=== PATIENT | male | born 1980 | race Caucasian/White ===

== ENCOUNTER 2017-03-29 10:34 | Inpatient (IN) | payer BC, OTHER ==
[~2017-03-29] VITALS: Ht 198.1 cm; Wt 111.1 kg
[2017-03-30] VITALS (7 sets, daily range): BP systolic 99–131; BP diastolic 51–85
[2017-03-30] MEDS ORDERED: LOPERAMIDE HCL 2 MG CAPSULE PO PRN ×2 (00:30)
[2017-03-30] MEDS ORDERED: ONDANSETRON 4 MG/2 ML VIAL IM PRN (00:30)
[2017-03-30] MEDS ORDERED: DICYCLOMINE HCL 20 MG TABLET PO PRN (00:30)
[2017-03-30] MEDS ORDERED: MIRALAX 17 GM POWD.PACK PO PRN (00:30)
[2017-03-30] MEDS ORDERED: diphenhydrAMINE 50 MG CAPSULE PO PRN (00:30)
[2017-03-30] MEDS ORDERED: MAGNESIUM HYDROXIDE 30 ML LIQUID UDC PO PRN (00:30)
[2017-03-30] MEDS ORDERED: BUPRENORPHINE HCL 2 MG TAB.SUBL SL PRN (00:30)
[2017-03-30] MEDS ORDERED: HYDROXYZINE PAMOATE 25 MG CAPSULE PO PRN (00:30)
[2017-03-30] MEDS ORDERED: ONDANSETRON ODT 4 MG TAB.RAPDIS SL PRN (00:30)
[2017-03-30] MEDS ORDERED: MAG HYDROX/AL HYDROX/SIMETH 30 ML LIQUID UDC PO PRN (00:30)
[2017-03-30 01:34] LABS: *AMPHETAMINE, URINE POSITIVE (NEGATIVE); *BARBITURATE, URINE NEGATIVE (NEGATIVE); *CANNABINOID, URINE NEGATIVE (NEGATIVE); *COCCAINE, URINE NEGATIVE (NEGATIVE); *OPIATE, URINE POSITIVE (NEGATIVE); *PHENCYCLIDINE SCREEN,URINE NEGATIVE (NEGATIVE)
[2017-03-30] MEDS: METHOCARBAMOL 750 MG TABLET PO PRN ×2 (01:53→15:37)
[2017-03-30 01:55] LABS: BASOPHILS # (AUTO) 0.1 K/uL (0.0-8.0); EOSINOPHILS # (AUTO) 0.6 K/uL (0.0-0.7); EOSINOPHILS % (AUTO) 10.9 % (0.0-7.0); HEMATOCRIT 41.1 % (36.7-47.1); HEMOGLOBIN 14.7 g/dL (12.5-16.3); LYMPHOCYTES # (AUTO) 2.6 K/uL (20.0-40.0); LYMPHOCYTES % (AUTO) 45.7 % (20.5-51.5); MEAN CORPUSCULAR HGB CONC 36 g/dL (32.5-36.3); MEAN CORPUSCULAR VOLUME 86.5 fL (73.0-96.2); MONOCYTES # (AUTO) 0.5 K/uL (2.0-10.0); MONOCYTES % (AUTO) 8.9 % (0.0-11.0); NEUTROPHILS # (AUTO) 1.9 K/uL (1.8-8.9); NEUTROPHILS % (AUTO) 33.5 % (38.5-71.5); PLATELET COUNT (AUTO) 247 K/uL (152-348); RED BLOOD CELL COUNT(AUTO) 4.75 MIL/uL (4.06-5.63); WHITE BLOOD COUNT (AUTO) 5.6 K/uL (3.6-10.2)
[2017-03-30] MEDS ORDERED: HYDROXYZINE PAMOATE 25 MG CAPSULE ONE (02:07)
[2017-03-30] MEDS ORDERED: METHOCARBAMOL 750 MG TABLET ONE (02:08)
[2017-03-30] MEDS ORDERED: diphenhydrAMINE 50 MG CAPSULE ONE (02:08)
[2017-03-30 02:18] LABS: ALANINE AMINOTRANSFERASE 30 U/L (16-63); ALKALINE PHOSPHATASE 55 U/L (50-136); ASPARTATE AMINOTRANSFERASE 15 U/L (15-37); BILIRUBIN,TOTAL 0.6 mg/dL (0.2-1.0); CARBON DIOXIDE 33 mmol/L (21-32); CHLORIDE 102 mmol/L (98-107); CREATININE 1.4 mg/dL (0.6-1.3); GLUCOSE 113 mg/dL (74-106); MAGNESIUM 2.2 mg/dL (1.8-2.4); POTASSIUM 4.4 mmol/L (3.5-5.1); TOTAL PROTEIN, SERUM 7.2 g/dL (6.4-8.2); UREA NITROGEN, BLOOD 22 mg/dL (7-18)
[2017-03-30 02:19] LABS: AMYLASE 55 U/L (25-115); LIPASE 100 U/L (73-393)
[2017-03-30 02:32] LABS: THYROID STIMULATING HORMONE 3.362 mIU/mL (0.358-3.740)
[2017-03-30 02:43] LABS: ETHANOL < 3 MG/DL (0-0)
[2017-03-30] MEDS: MULTIVITAMINS,THERAPEUTIC TABLET PO SCH (09:15)
[2017-03-30] MEDS ORDERED: INFLUENZA VACCINE 2017-2018 0.5 ML DISP.SYRIN IM ONE (09:30)
[2017-03-30] MEDS ORDERED: LORAZEPAM 1 MG TABLET PO PRN (11:15)
[2017-03-30] MEDS: BUPRENORPHINE HCL 2 MG TAB.SUBL SL SCH ×3 (12:42→20:09)
[2017-03-30] MEDS: IBUPROFEN 600 MG TABLET PO PRN ×2 (15:37→23:37)
[2017-03-30] MEDS: ACETAMINOPHEN 325 MG TABLET PO PRN (20:09)
[2017-03-30] MEDS: HYDROXYZINE PAMOATE 25 MG CAPSULE PO PRN (20:09)
[2017-03-30] MEDS: GABAPENTIN 300 MG CAPSULE PO SCH (20:09)
[2017-03-30] MEDS: CLONIDINE HCL 0.1 MG TABLET PO PRN (23:38)
[2017-03-31 04:00] VITALS: BP 105/64
[2017-03-31 08:23] VITALS: BP 112/62
[2017-03-31] MEDS ORDERED: TUBERCULIN,PURIF.PROT.DERIV. 5 TU/0.1 ML TEST ID ONE (09:00)
[2017-03-31] MEDS: GABAPENTIN 300 MG CAPSULE PO SCH ×3 (09:23→21:05)
[2017-03-31] MEDS: MULTIVITAMINS,THERAPEUTIC TABLET PO SCH (09:24)
[2017-03-31] MEDS: BUPRENORPHINE HCL 2 MG TAB.SUBL SL SCH ×3 (09:24→21:06)
[2017-03-31] MEDS: CLONIDINE HCL 0.1 MG TABLET PO PRN (09:31)
[2017-03-31] MEDS: METHOCARBAMOL 750 MG TABLET PO PRN (09:31)
[2017-03-31] MEDS: HYDROXYZINE PAMOATE 25 MG CAPSULE PO PRN (09:32)
[2017-03-31] MEDS: ACETAMINOPHEN 325 MG TABLET PO PRN (09:32)
[2017-03-31] MEDS ORDERED: KETOROLAC TROMETHAMINE 30 MG INJ IM PRN (10:45)
[2017-03-31] MEDS ORDERED: ASPIRIN/ACETAMINOPHEN/CAFFEINE TABLET PO PRN (10:45)
[2017-03-31 12:55] VITALS: BP 118/72
[2017-03-31 14:08] LABS: HEPATITIS B SURFACE AG Negative (Negative)
[2017-03-31] MEDS: BACLOFEN 10 MG TABLET PO SCH ×2 (14:12→21:06)
[2017-03-31 16:55] VITALS: BP 106/64
[2017-03-31 20:00] VITALS: BP 112/75
[2017-03-31] MEDS: CLONIDINE HCL 0.1 MG TABLET PO SCH (21:06)
[2017-04-01] VITALS: BP 97/65
[2017-04-01 08:00] VITALS: BP 105/61
[2017-04-01] MEDS: METHOCARBAMOL 750 MG TABLET PO PRN (08:11)
[2017-04-01] MEDS: BACLOFEN 10 MG TABLET PO SCH (08:11)
[2017-04-01] MEDS: MULTIVITAMINS,THERAPEUTIC TABLET PO SCH (08:11)
[2017-04-01] MEDS: GABAPENTIN 300 MG CAPSULE PO SCH ×3 (08:11→20:21)
[2017-04-01 08:54] LABS: MAGNESIUM 1.9 mg/dL (1.8-2.4); POTASSIUM 4.2 mmol/L (3.5-5.1)
[2017-04-01] MEDS ORDERED: BUPRENORPHINE HCL 2 MG TAB.SUBL SL SCH (09:00)
[2017-04-01] MEDS: CLONIDINE HCL 0.1 MG TABLET PO SCH ×2 (09:00→20:21)
[2017-04-01] MEDS: SERTRALINE HCL 50 MG TABLET PO SCH (09:33)
[2017-04-01 12:00] VITALS: BP 113/64
[2017-04-01] MEDS: BUPRENORPHINE HCL 2 MG TAB.SUBL SL SCH ×2 (14:54→20:21)
[2017-04-01] MEDS: BACLOFEN 20 MG TABLET PO SCH ×2 (15:00→20:21)
[2017-04-01 16:00] VITALS: BP 135/78
[2017-04-01 20:00] VITALS: BP 101/71
[2017-04-02 03:15] VITALS: BP 130/80
[2017-04-02 08:00] VITALS: BP 118/71
[2017-04-02] MEDS: SERTRALINE HCL 50 MG TABLET PO SCH (08:41)
[2017-04-02] MEDS: CLONIDINE HCL 0.1 MG TABLET PO SCH ×2 (08:42→20:28)
[2017-04-02] MEDS: MULTIVITAMINS,THERAPEUTIC TABLET PO SCH (08:42)
[2017-04-02] MEDS: BACLOFEN 20 MG TABLET PO SCH ×3 (08:42→20:28)
[2017-04-02] MEDS: GABAPENTIN 300 MG CAPSULE PO SCH ×3 (08:42→20:27)
[2017-04-02] MEDS: BUPRENORPHINE HCL 2 MG TAB.SUBL SL SCH ×3 (08:42→20:28)
[2017-04-02 12:00] VITALS: BP 124/64
[2017-04-02] MEDS: HYDROXYZINE PAMOATE 25 MG CAPSULE PO PRN (14:20)
[2017-04-02 16:00] VITALS: BP 149/78
[2017-04-02 20:00] VITALS: BP 105/75
[2017-04-03] VITALS: BP 135/81
[2017-04-03 08:00] VITALS: BP 131/85
[2017-04-03] MEDS: BACLOFEN 20 MG TABLET PO SCH (09:00)
[2017-04-03] MEDS ORDERED: BUPRENORPHINE HCL 2 MG TAB.SUBL SL SCH (09:00)
[2017-04-03] MEDS: MULTIVITAMINS,THERAPEUTIC TABLET PO SCH (09:00)
[2017-04-03] MEDS: SERTRALINE HCL 50 MG TABLET PO SCH (09:00)
[2017-04-03] MEDS: CLONIDINE HCL 0.1 MG TABLET PO SCH (09:00)
[2017-04-03] MEDS: GABAPENTIN 300 MG CAPSULE PO SCH (09:00)
[2017-04-03 12:00] VITALS: BP 126/80
[2017-04-03] MEDS ORDERED: METH-406 PO (12:19)
[2017-04-03] MEDS ORDERED: CLON0.1T14 PO (12:19)
[2017-04-03] MEDS ORDERED: IBUP-1955 PO (12:19)
[2017-04-03] MEDS ORDERED: HYDR-3895 PO (12:19)
[2017-04-03] MEDS ORDERED: DICY20TA28 PO (12:19)
[2017-04-03] MEDS ORDERED: DIPH50CA37 PO (12:19)
[2017-04-03] MEDS ORDERED: GABA-534 PO (12:19)
== END 2017-04-03 12:43 | disposition other institution (70) | DRG 895 ==
LOC: SRC 23:24
PROVIDERS: ADMIT Internal Medicine; ATTEND Internal Medicine
PROC: HZ2ZZZZ Detoxification Services for Substance Abuse Treatment (ICD-10-PCS; principal; 2017-03-29)
PROC: HZ31ZZZ Individual Counseling for Substance Abuse Treatment, Behavioral (ICD-10-PCS; 2017-04-01)
PROC: HZ41ZZZ Group Counseling for Substance Abuse Treatment, Behavioral (ICD-10-PCS; 2017-04-02)
DX: F11.23 Opioid dependence with withdrawal (principal); E87.3 Alkalosis; N17.9 Acute kidney failure, unspecified; E86.0 Dehydration; F17.210 Nicotine dependence, cigarettes, uncomplicated; F32.9 Major depressive disorder, single episode, unspecified; F41.9 Anxiety disorder, unspecified; G47.00 Insomnia, unspecified; Z59.0 Homelessness; Z83.3 Family history of diabetes mellitus; R73.9 Hyperglycemia, unspecified; F15.10 Other stimulant abuse, uncomplicated; Z59.1 Inadequate housing
CPT/HCPCS: 36415; 70030-TC; 80307; 80324; 80361; 83690; 83735; 84443; 85025; 86580; 86592; 86705; 86803; 87340; 87806; 90686; G0480; J1885; Q0163